=== PATIENT | male | born 1960 | race Caucasian/White ===

== ENCOUNTER 2021-08-15 19:55 | Emergency (ER) | payer BC ==
--- OUTSIDE RECORDS SUMMARY | 2021-08-15 19:58 | XMS REPORT | Continuity of Care Document ---
:[address] [facility] t Address [address] [place] [address] Care Team Providers Name Role Phone PCP, DOES NOT HAVE A Primary Care Physician Unavailable UNKNOWN Attending Clinician Unavailable Maryann INTELLIGENCE ANALYST Attending Clinician Lab, Fam Pob I Attending Clinician Unavailable Rei INTELLIGENCE ANALYST Attending Clinician Pob1, Care Clinic Attending Clinician Unavailable Sera LAWRENCE, A Attending Clinician Benoit GOODMAN, A Attending Clinician Unavailable MARYANN Attending Clinician Unavailable MARYANN Admitting Clinician Unavailable Payers Payer Name Policy Type Policy Number Effective Date Expiration Date S [facility] [id number] 2019 00:00:00 SRC AN [employer] [id number] 2015 00:00:00 COMPANY Problems Condition Condition Condition Status Onset Resolution Last Treating Co mments Source Name Details Category Date Date Treatment Clinician Date No known No known Disease Unive rs active active ity of problems problems [facility] Allergies, Adverse Reactions, Alerts Allergy Allergy Status Severity Reaction(s) Onset Inactive Treating Comm ents Source Name Type Date Date Clinician NO KNOWN Drug Active Univers ALLERGIE Class ity of S [facility] Social History Social Habit Start Date Stop Date Quantity Comments Source [facility] to SARS-[facility]-2 Yes [facility] [place] [facility]event[facility] Smoking Status Start Date Stop Date Source Never smoker [facility] Medications Ordered Filled Start Stop Current Ordering Indication Dosage Frequency Signature Comments Components Source Medication Medication Date Date Medication? Clinician (SIG) Name Name saxagliptin Yes Take by Un rita HCl/metform 6-13 mouth. ity of in HCl 17:05: [place] (KOMBIGLYZE 39 Medical XR ORAL) Branch empaglifloz 2020-0 Yes 25mg Take 25 mg Univers in 25 mg 6-13 by mouth. ity of Tab 17:05: [address] Branch pregabalin 2020-0 Yes Take by Uni vers 100 mg 6-13 mouth. ity of capsule 17:05: [address] Branch insulin 2020-0 Yes 44U inject 44 Unive rs degludec 6-13 Units ity of (TRESIBA 17:05: under the [facility] s FLEXTOUCH 39 skin. Medical U-100) 100 Branch unit/mL (3 mL) InPn insulin 2020-0 Yes inject Univers aspart 6-13 under the ity of U-100 17:05: skin. [place] (NOVOLOG 39 Medical FLEXPEN Branch U-100 INSULIN) 100 unit/mL (3 mL) injection saxagliptin 2020-0 Yes Take by Un rita HCl/metform 6-13 mouth. ity of in HCl 17:05: [place] (KOMBIGLYZE 39 Medical XR ORAL) Branch empaglifloz 2020-0 Yes 25mg Take 25 mg Univers in 25 mg 6-13 by mouth. ity of Tab 17:05: [address] Branch pregabalin 2020-0 Yes Take by Uni vers 100 mg 6-13 mouth. ity of capsule 17:05: [address] insulin 2020-0 Yes 44U inject 44 Unive rs degludec 6-13 Units ity of (TRESIBA 17:05: under the [facility] FLEXTOUCH 39 skin. Medical U-100) 100 Branch unit/mL (3 mL) InPn insulin 2020-0 Yes inject Univers aspart 6-13 under the ity of U-100 17:05: skin. [place] (NOVOLOG 39 Medical FLEXPEN Branch U-100 INSULIN) 100 unit/mL (3 mL) injection saxagliptin 2020-0 Yes Take by Un rita HCl/metform 6-13 mouth. ity of in HCl 17:05: [place] (KOMBIGLYZE 39 Medical XR ORAL) Branch empaglifloz 2020-0 Yes 25mg Take 25 mg Univers in 25 mg 6-13 by mouth. ity of Tab 17:05: [address] Branch pregabalin 2020-0 Yes Take by Uni vers 100 mg 6-13 mouth. ity of capsule 17:05: [place] 39 Medical Branch insulin 2020-0 Yes 44U inject 44 Unive rs degludec 6-13 Units ity of (TRESIB[place] 17:[place] FLEXT[place] 39 skin. Medical U-100) 100 Branch unit/mL (3 mL) InPn insulin 2020-0 Yes inject Univers aspart 6-13 under the ity of U-100 17:05: skin. [place] (NOVOLOG 39 Medical FLEXPEN Branch U-100 INSULIN) 100 unit/mL (3 mL) injection saxagliptin 2020-0 Yes Take by Un rita HCl/metform 6-13 mouth. ity of in HCl 17:05: [place] (KOMBIGLYZE 39 Medical XR ORAL) Branch empaglifloz 2020-0 Yes 25mg Take 25 mg Univers in 25 mg 6-13 by mouth. ity of Tab 17:05: [address] Branch pregabalin 2020-0 Yes Take by Uni vers 100 mg 6-13 mouth. ity of capsule 17:05: [address] Branch insulin 2020-0 Yes 44U inject 44 Unive rs degludec 6-13 Units ity of (TRESIBA 17:05: under the [facility] s FLEXTOUCH 39 skin. Medical U-100) 100 Branch unit/mL (3 mL) InPn insulin 2020-0 Yes inject Univers aspart 6-13 under the ity of U-100 17:05: skin. [place] (NOVOLOG Medical FLEXPEN Branch U-100 INSULIN) 100 unit/mL (3 mL) injection saxagliptin 2020-0 Yes Take by Un rita HCl/metform 6-13 mouth. ity of in HCl 17:05: [place] (KOMBIGLYZE 39 Medical XR ORAL) Branch empaglifloz 2020-0 Yes 25mg Take 25 mg Univers in 25 mg 6-13 by mouth. ity of Tab 17:05: [address] Branch pregabalin 2020-0 Yes Take by Uni vers 100 mg 6-13 mouth. ity of capsule 17:05: [address] insulin 2020-0 Yes 44U inject 44 Unive rs degludec 6-13 Units ity of (TRESIBA 17:05: [place] FLEXT[place] 39 skin. Medical U-100) 100 Branch unit/mL (3 mL) InPn insulin 2020-0 Yes inject Univers aspart 6-13 under the ity of U-100 17:05: skin. [place] (NOVOLOG 39 Medical FLEXPEN Branch U-100 INSULIN) 100 unit/mL (3 mL) injection saxagliptin 2020-0 Yes Take by Un rita HCl/metform 6-13 mouth. ity of in HCl 17:05: [place] (KOMBIGLYZE 39 Medical XR ORAL) Branch empaglifloz 2020-0 Yes 25mg Take 25 mg Univers in 25 mg 6-13 by mouth. ity of Tab 17:05: [place] [address] Medical Branch pregabalin 2020-0 Yes Take by Uni vers 100 mg 6-13 mouth. ity of capsule 17:05: [place] [address] Medical Branch insulin 2020-0 Yes 44U inject 44 Unive rs degludec 6-13 Units ity of (TRESIBA 17:05: [place] FLEXT[place] 39 skin. Medical U-100) 100 Branch unit/mL (3 mL) InPn insulin 2020-0 Yes inject Univers aspart 6-13 under the ity of U-100 17:05: skin. [place] (NOVOLOG 39 Medical FLEXPEN Branch U-100 INSULIN) 100 unit/mL (3 mL) injection methylPREDN 2020-0 Yes [id number] Take by Univers ISolone 4 6-13 mouth ity of mg tablets 00:00: [place] 00 CTIONS. Medical follow Branch package directions benzonatate 2020-0 Yes [id number] 100mg Take 1 Univers (TESSALON 6-13 capsule by ity of PERLES) 100 00:00: mouth 3 F[place] as mg capsule 00 (three) Medica l times Branch daily as needed for Cough. albuterol 2020-0 Yes [id number] 2{puff} Inhale 2 Univers 90 6-13 Puffs ity of mcg/actuati 00:00: every 6 Fadi as on inhaler 00 (six) Medical hours as Branch needed for Wheezing or Shortness of Breath. methylPREDN 2020-0 Yes [id number] Take by Univers ISolone 4 6-13 mouth ity of mg tablets 00:00: [place]STRU [place] 00 CTIONS. Medical follow Branch package directions benzonatate 2020-0 Yes [id number] 100mg Take 1 Univers (TESSALON 6-13 capsule by ity of PERLES) 100 00:00: mouth 3 Fadi as mg capsule 00 (three) Medica l times Branch daily as needed for Cough. albuterol 2020-0 Yes [id number] 2{puff} Inhale 2 Univers 90 6-13 Puffs ity of mcg/actuati 00:00: every 6 Fadi as on inhaler 00 (six) Medical hours as Branch needed for Wheezing or Shortness of Breath. methylPREDN 2020-0 Yes [id number] Take by Univers ISolone 4 6-13 mouth ity of mg tablets 00:00: [place]STRU [place] 00 CTIONS. Medical follow Branch package directions benzonatate 2020-0 Yes [id number] 100mg Take 1 Univers (TESSALON 6-13 capsule by ity of PERLES) 100 00:00: mouth 3 Fadi as mg capsule 00 (three) Medica l times Branch daily as needed for Cough. albuterol 2020-0 Yes [id number] 2{puff} Inhale 2 Univers 90 6-13 Puffs ity of mcg/actuati 00:00: every 6 Fadi as on inhaler 00 (six) Medical hours as Branch needed for Wheezing or Shortness of Breath. methylPREDN 2020-0 Yes [id number] Take by Univers ISolone 4 6-13 mouth ity of mg tablets 00:00: [place] 00 CTIONS. Medical follow Branch package directions benzonatate 2020-0 Yes [id number] 100mg Take 1 Univers (TESSALON 6-13 capsule by ity of PERLES) 100 00:00: mouth 3 Fadi as mg capsule 00 (three) Medica l times Branch daily as needed for Cough. albuterol 2020-0 Yes [id number] 2{puff} Inhale 2 Univers 90 6-13 Puffs ity of mcg/actuati 00:00: every 6 Fadi as on inhaler 00 (six) Medical hours as Branch needed for Wheezing or Shortness of Breath. methylPREDN 2020-0 Yes [id number] Take by Univers ISolone 4 6-13 mouth ity of mg tablets 00:00: [place]STRU [place] 00 CTIONS. Medical follow Branch package directions benzonatate 2020-0 Yes [id number] 100mg Take 1 Univers (TESSALON 6-13 capsule by ity of PERLES) 100 00:00: mouth 3 Fadi as mg capsule 00 (three) Medica l times Branch daily as needed for Cough. albuterol 2020-0 Yes [id number] 2{puff} Inhale 2 Univers 90 6-13 Puffs ity of mcg/actuati 00:00: every 6 Fadi as on inhaler 00 (six) Medical hours as Branch needed for Wheezing or Shortness of Breath. methylPREDN 2019-0 Yes [id number] Take by Univers ISolone 4 6-13 mouth ity of mg tablets 00:00: SEE-INSTRU [place] 00 CTIONS. Medical follow Branch package directions benzonatate Yes [id number] 100mg Take 1 Univers (TESSALON 6-13 capsule by ity of PERLES) 100 00:00: mouth 3 Fadi as mg capsule 00 (three) Medica l times Branch daily as needed for Cough. albuterol Yes [id number] 2{puff} Inhale 2 Univers 90 6-13 Puffs ity of mcg/actuati 00:00: every 6 Fadi as on inhaler 00 (six) Medical hours as Branch needed for Wheezing or Shortness of Breath. Vital Signs Vital Name Observation Time Observation Value Comments Source Systolic blood 2019-10-04 17:02:00 162 mm[Hg] [facility] Diastolic blood 2019-10-04 17:02:00 78 mm[Hg] [facility] [place] Heart rate 2019-10-04 16:58:00 77 /min [facility] Body temperature 2019-10-04 16:58:00 36.56 [facility] Respiratory rate 2019-10-04 16:58:00 17 /min [facility] Body height 2019-10-04 16:58:00 165.1 cm [facility] Body weight 2019-10-04 16:58:00 75.297 kg [facility] BMI 2019-10-04 16:58:00 27.62 kg/m2 [facility] Oxygen saturation in 2019-10-04 16:58:00 98 /min [facility] Arterial blood by [facility] Pulse oximetry Branch Procedures Procedure Date / Time Performed Performing Clinician Sourc e XR CHEST 2 VW COVID 2019-10-04 17:47:18 Vida Wolf [facility] Encounters Start End Encounter Admission Attending Care Care Encounter Source Date/Time Date/Time Type Type Clinicians Facility Department ID 2019-11-04 2019-11-04 Outpatient R [facility] [id number] Univers 07:00:00 07:00:00 [id number] ity of [facility] 2019-11-04 2019-11-04 Outpatient R UNKNOWN, [facility] [id number] Univers 07:00:00 07:00:00 ATTENDING ity of [facility] 2019-10-29 2019-10-29 Jonathanzhane Wolf [facility] [id number] Univers 00:00:00 00:00:00 [facility] [id number] it y of [place] [id number] Fadi as Professio [phone] Oh dical nal [address] [place] [address] [facility] 2019-10-22 2019-10-22 Laboratory Lab, Adc Fam Pob I [facility] [id number] Univers 11:13:43 11:33:43 Only Gunjan [facility] [id number] ity of [place] [id number] Fadi as Professio [phone] Oh dical nal [address] [place] [address] One 2019-10-22 2019-10-22 Outpatient R [facility] [id number] Univers 11:20:00 11:20:00 [id number] ity of [facility] 2019-10-22 2019-10-22 Outpatient R [facility] [id number] Univers 11:20:00 11:20:00 ity of [facility] 2019-10-03 2019-10-05 Urgent Pob1, Acute Care Clinic [facility] [id number]. [id number] Univers 15:42:51 12:10:46 Care Yoli [facility] [id number] ity of [place] [id number] Fadi as Professio [phone] Oh dicpa nal [address] [place] [address] Office Building [facility] 2019-10-05 2019-10-05 Telephone BenoitDESI [id number] Univers 00:00:00 00:00:00 Clare FIGUEROA [id number] i ty of [facility] [id number] Fadi as [phone] [address] 2019-10-04 2019-10-04 Outpatient R MARYANN [facility] [id number] Univers 12:29:20 23:59:00 VIDA sorensen of [facility] 2019-10-04 2019-10-04 Hospital Maryann [facility] [id number] Univers 12:29:00 23:59:00 Encounter Vida Zapata [id number] ity jose Guzman [id number] [facility] [id number] [facility] 807 Branch Results Test Description Test Time Test Comments Results Result Sourc e Comments XR CHEST 2 VW 2019-09-22 Patchy pulmonary Univ ersity of COVID 3 opacities worse on [facility] 22:37:53 the right are Branch suspicious for infection.COVID 19 should be considered. Follow-up to resolution is recommended. [id number] End of report CHEST TWO VIEW ORDERING PHYSICIAN: VIDA WOLF CLINICAL HISTORY:cough and sob Camilo Redd is a 59 year old male:cough/sob for 2 weeks.; TECHNIQUE: PA and lateral radiographs of the chest. COMPARISON: None available. FINDINGS: There are patchy opacities in the lungs most pronounced on the left. Thereis relative sparing of the left upper lobe. There is no large pleuraleffusion. There is no large pneumothorax. Heart size upper limit normal.There is no acute bony abnormality. [facility], Radiant Results Inft User - 10/04/2019 5:39 PM CDTCHEST TWO VIEWORDERING PHYSICIAN: VIDA WOLFCLINICAL HISTORY:cough and sob Camilo Redd is a 59 year old male:cough/sob for 2 weeks.;TECHNIQUE: PA and lateral radiographs of the chest.COMPARISON: None available.FINDINGS:Th ere are patchy opacities in the lungs most pronounced on the left. Thereis relative sparing of the left upper lobe. There is no large pleuraleffusion. There is no large pneumothorax. Heart size upper limit normal.There is no acute bony abnormality. IMPRESSIONPatchy pulmonary opacities worse on the right are suspicious for infection.COVID 19 should be considered. Follow-up to resolution is recommended.[id number] of report
--- NOTE | 2021-08-15 20:29 | EDPHYS ---
Physician Documentation [facility] Name: Camilo Redd Age: 61 yrs Sex: Male : 1960 Arrival Date: 08/15/2021 Time: 19:59 Bed 23 Private MD: ED Physician Deion Steven HPI: 08/15 20:17 This 61 yrs old Male presents to ER via Ambulatory with complaints of Swallowed Foreign jr8 Body. 20:38 Patient stated that he swallowed a piece of tooth from denture that he tried to glue jr8 back on. Denies choking on the denture piece. Currently without any symptoms . 20:48 The patient or guardian reports the patient has a suspected foreign body, that has been jr8 ingested. Onset: The symptoms/episode began/occurred acutely, today. Current symptoms: none. The patient has not experienced similar symptoms in the past. The patient has not recently seen a physician. Historical: - Allergies: 20:12 No Known Allergies; ld1 - Home Meds: 20:12 None [Active]; ld1 - PMHx: 20:12 Diabetes mellitus; ld1 - Immunization history:: Adult Immunizations up to date, Client reports receiving the 2nd dose of the Covid vaccine. - Social history:: Smoking status: Patient denies any tobacco usage or history of. Patient uses alcohol, occasionally. ROS: 20:48 Eyes: Negative for injury, pain, redness, and discharge, ENT: Negative for injury, jr8 pain, and discharge, Neck: Negative for injury, pain, and swelling, Cardiovascular: Negative for chest pain, palpitations, and edema, Respiratory: Negative for shortness of breath, cough, wheezing, and pleuritic chest pain, Abdomen/GI: Negative for abdominal pain, nausea, vomiting, diarrhea, and constipation, Back: Negative for injury and pain, MS/Extremity: Negative for injury and deformity, Skin: Negative for injury, rash, and discoloration, Neuro: Negative for headache, weakness, numbness, tingling, and seizure. Exam: 20:48 Constitutional: This is a well developed, well nourished patient who is awake, alert, jr8 and in no acute distress. Cardiovascular: Regular rate and rhythm with a normal S1 and S2. No gallops, murmurs, or rubs. Normal PMI, no JVD. No pulse deficits. Respiratory: Lungs have equal breath sounds bilaterally, clear to auscultation and percussion. No rales, rhonchi or wheezes noted. No increased work of breathing, no retractions or nasal flaring. Abdomen/GI: Soft, non-tender, with normal bowel sounds. No distension or tympany. No guarding or rebound. No evidence of tenderness throughout. Skin: Warm, dry with normal turgor. Normal color with no rashes, no lesions, and no evidence of cellulitis. MS/ Extremity: Pulses equal, no cyanosis. Neurovascular intact. Full, normal range of motion. Neuro: Awake and alert, GCS 15, oriented to person, place, time, and situation. Cranial nerves II-XII grossly intact. Motor strength 5/5 in all extremities. Sensory grossly intact. Vital Signs: 20:04 BP 173 / 85; Pulse 80; Resp 18; Temp 98.1(TE); Pulse Ox 100% on R/A; Weight 74.84 kg; ld1 Height 5 ft. 5 in. (165.10 cm); Pain 0/10; 20:04 Body Mass Index 27.46 (74.84 kg, 165.10 cm) ld1 MDM: 20:01 Patient medically screened. jr8 20:24 Data reviewed: vital signs, nurses notes, and as a result, I will discharge patient. jr8 Data interpreted: Pulse oximetry: on room air is 100 %. Counseling: I had a detailed discussion with the patient and/or guardian regarding: the historical points, exam findings, and any diagnostic results supporting the discharge/admit diagnosis, the need for outpatient follow up, a family practitioner, to return to the emergency department if symptoms worsen or persist or if there are any questions or concerns that arise at home. ED course: Patient has swallowed fake denture tooth. Wanted to make sure he did not need to do anything specifically. Stated that it had a 45 degree angle on one side due to previous malfunction of the denture that he glued on. Explained to him that there is nothing at this time to be done. Recommended just watching for s/s of complication from foreign body ingestion such as abdominal pain, bleeding, n/v. If any were to occur to come back for further evaluation. Otherwise nothing else to be done at this time. Patient good with this and will follow up or come back . Administered Medications: No medications were administered Disposition Summary: 08/15/21 20:28 Discharge Ordered Location: Home jr8 Problem: new jr8 Symptoms: have improved jr8 Condition: Stable jr8 Diagnosis - Foreign body in stomach jr8 Followup: jr8 - With: Private Physician - When: 2 - 3 days - Reason: Recheck today's complaints, Continuance of care, Re-evaluation by your physician Discharge Instructions: - Discharge Summary Sheet jr8 - Swallowed Foreign Body, Adult jr8 Forms: - Medication Reconciliation Form jr8 - Thank You Letter jr8 - Antibiotic Education jr8 - Prescription Opioid Use jr8 Addendum: 08/18/2021 07:13 Co-signature as Attending Physician, Deion Steven MD I agree with the assessment and c ramirez plan of care. Signatures: Deion Steven MD MD cha Roszak, Josh, PA PA jr8 Camelia Tomas, RN RN ld1 Corrections: (The following items were deleted from the chart) 08/15 20:13 20:12 PMHx: None; ld1 ld1 20:49 20:38 Patient stated that he swallowed a piece of tooth from denture that he tried to jr8 glue back on. Denies choking on the denture piece . jr8
--- NOTE | 2021-08-15 20:29 | ER ---
Nurse's Notes [facility] Name: Camilo Redd Age: 61 yrs Sex: Male : 1960 Arrival Date: 08/15/2021 Time: 19:59 Bed 23 Private MD: Diagnosis: Foreign body in stomach Presentation: 08/15 20:04 Chief complaint: Patient states: About 30 minutes ago I swallowed a partial denture. Pt ld1 denies pain. Coronavirus screen: At this time, the client does not indicate any symptoms associated with coronavirus-19. Ebola Screen: No symptoms or risks identified at this time. Initial Sepsis Screen: Does the patient meet any 2 criteria? No. Patient's initial sepsis screen is negative. Does the patient have a suspected source of infection? No. Patient's initial sepsis screen is negative. Risk Assessment: Do you want to hurt yourself or someone else? Patient reports no desire to harm self or others. Onset of symptoms was August 15, 2021. 20:04 Method Of Arrival: Ambulatory ld1 20:04 Acuity: CARLOS MANUEL 4 ld1 Triage Assessment: 20:12 General: Appears in no apparent distress. comfortable, Behavior is calm, cooperative, ld1 appropriate for age. Pain: Denies pain. EENT: No signs and/or symptoms were reported regarding the EENT system. Neuro: Level of Consciousness is awake, alert, obeys commands, Oriented to person, place, time, situation. Cardiovascular: Capillary refill < 3 seconds Patient's skin is warm and dry. Respiratory: Airway is patent Respiratory effort is even, unlabored, Respiratory pattern is regular, symmetrical. GI: Abdomen is flat, non-distended. : No signs and/or symptoms were reported regarding the genitourinary system. Derm: No signs and/or symptoms reported regarding the dermatologic system. Musculoskeletal: No signs and/or symptoms reported regarding the musculoskeletal system. Historical: - Allergies: 20:12 No Known Allergies; ld1 - Home Meds: 20:12 None [Active]; ld1 - PMHx: 20:12 Diabetes mellitus; ld1 - Immunization history:: Adult Immunizations up to date, Client reports receiving the 2nd dose of the Covid vaccine. - Social history:: Smoking status: Patient denies any tobacco usage or history of. Patient uses alcohol, occasionally. Screenin:13 Abuse screen: Denies threats or abuse. Denies injuries from another. Nutritional ld1 screening: No deficits noted. Tuberculosis screening: No symptoms or risk factors identified. Fall Risk None identified. Assessment: 20:13 Reassessment: see triage assessment. ld1 Vital Signs: 20:04 BP 173 / 85; Pulse 80; Resp 18; Temp 98.1(TE); Pulse Ox 100% on R/A; Weight 74.84 kg; ld1 Height 5 ft. 5 in. (165.10 cm); Pain 0/10; 20:04 Body Mass Index 27.46 (74.84 kg, 165.10 cm) ld1 ED Course: 19:59 Patient arrived in ED. ag3 20:01 Kemal Gusman PA is PHCP. jr8 20:01 Deion Steven MD is Attending Physician. jr8 20:04 Camelia Tomas, MAXINE is Primary Nurse. ld1 20:12 Triage completed. ld1 20:12 Arm band placed on right wrist. ld1 20:13 No provider procedures requiring assistance completed. Patient did not have IV access ld1 during this emergency room visit. Administered Medications: No medications were administered Outcome: 20:28 Discharge ordered by . jr8 20:36 Discharged to home ambulatory. ld1 20:36 Condition: stable 20:36 Discharge instructions given to patient, Instructed on discharge instructions, follow up and referral plans. Demonstrated understanding of instructions, follow-up care. 20:36 Patient left the ED. ld1 Signatures: Kemal Gusman PA PA 8 Mae Sloan 3 Camelia Tomas, RN RN ld1 Corrections: (The following items were deleted from the chart) 20:13 20:12 PMHx: None; ld1 ld1
[2021-08-16 00:19] VITALS: BP 173/85; TEMP 98.1; O2SAT 100
== END 2021-08-15 20:36 | disposition home or self-care (01) ==
LOC: ER 19:55
DX: T18.2XXA Foreign body in stomach, initial encounter (principal); X58.XXXA Exposure to other specified factors, initial encounter; Y93.89 Activity, other specified; Y92.9 Unspecified place or not applicable
CPT/HCPCS: 99281

== ENCOUNTER 2023-02-24 17:31 | Emergency (ER) | payer BC ==
--- OUTSIDE RECORDS SUMMARY | 2023-02-24 17:34 | XMS REPORT | Continuity of Care Document ---
:1960 Author Organization [facility] t Address [address] [facility] [address] [place] [address] Care Team Providers Name Role Phone PCP, PATIENT DOES NOT HAVE A Primary Care Physician Unavaila ble UNKNOWN, ATTENDING Attending Clinician Unavailable Vida Avalos Attending Clinician Lab, Adc Fam Pob I Attending Clinician Unavailable Gunjan Ayers Attending Clinician Pob1, Acute Care Clinic Attending Clinician Unavailable Yoli Hickey Attending Clinician Benoit RN, Clare Aguilar Attending Clinician Unavailable VIDA WOLF Attending Clinician Unavailable VIDA WOLF Admitting Clinician Unavailable Payers Payer Name Policy Type Policy Number Effective Date Expiration Date [facility] [id number] 2019 00:00:00 SRC AN [employer] [id number] 2015 00:00:00 COMPANY Problems Condition Condition Condition Status Onset Resolution Last Treating Co mments Source Name Details Category Date Date Treatment Clinician Date No known No known Disease Unive rs active active ity of problems problems [facility] Allergies, Adverse Reactions, Alerts Allergy Allergy Status Severity Reaction(s) Onset Inactive Treating Comm ents Source Name Type Date Date Clinician NO KNOWN Drug Active Univers ALLERGIE Class ity of S [facility] Family History Family Member Diagnosis Comments Start Date Stop Date Source Natural father Coronary artery [facility] disease Natural father Diabetes [facility] Social History Social Habit Start Date Stop Date Quantity Comments Source Exposure to Yes University of SARS-CoV-2 (event) [facility] Sexual orientation [facility] Alcohol intake 2017-02-12 2017-02-12 Current drinker [facility] 00:00:00 00:00:00 of alcohol Hospital (finding) History of Social 2017-01-23 2017-01-[address] function 00:00:00 00:00:00 Hospital Alcohol Comment 2017-01-23 2017-01-23 2-3drinks/day [facility] 00:00:00 00:00:00 [facility] Sex Ass[birth year] At [birth year] [facility] 00:[facility] Smoking Status Start Date Stop Date Source Never smoker [facility] Branch Medications Ordered Filled Start Stop Current Ordering Indication Dosage Frequency Signature Comments Components Source Medication Medication Date Date Medication? Clinician (SIG) Name Name saxagliptin 2020-0 Yes Take by Uni vers HCl/metform 6-13 mouth. ity of in HCl 17:05: [place] (KOMBIGLYZE 39 Medical XR ORAL) Branch empaglifloz 2020-0 Yes 25mg Take 25 mg Univers in 25 mg 6-13 by mouth. ity of Tab 17:05: [address] Branch pregabalin 2020-0 Yes Take by Univ ers 100 mg 6-13 mouth. ity of capsule 17:05: [address] Branch insulin 2020-0 Yes 44U inject 44 Unive rs degludec 6-13 Units ity of (TR[place]IB[place] 17:[place]: [place] FLEXTOUCH 39 skin. Medical U-100) 100 Branch unit/mL (3 mL) InPn insulin 2020-0 Yes inject Univers aspart 6-13 under the ity of U-100 17:05: skin. [place] (NOVOLOG 39 Medical FLEXPEN Branch U-100 INSULIN) 100 unit/mL (3 mL) injection saxagliptin 2020-0 Yes Take by Uni vers HCl/metform 6-13 mouth. ity of in HCl 17:05: [place] (KOMBIGLYZE 39 Medical XR ORAL) Branch empaglifloz 2020-0 Yes 25mg Take 25 mg Univers in 25 mg 6-13 by mouth. ity of Tab 17:05: [address] Branch pregabalin 2020-0 Yes Take by Univ ers 100 mg 6-13 mouth. ity of capsule 17:05: [address] Branch insulin 2020-0 Yes 44U inject 44 Unive rs degludec 6-13 Units ity of (TRESIBA 17:05: [facility] FLE[facility] skin. Medical U-100) 100 Branch unit/mL (3 mL) InPn insulin 2020-0 Yes inject Univers aspart 6-13 under the ity of U-100 17:05: skin. [place] [facility] FLEXPEN Branch U-100 INSULIN) 100 unit/mL (3 mL) injection saxagliptin 2020-0 Yes Take by Uni vers HCl/metform 6-13 mouth. ity of in HCl 17:05: [place] (KOMBIGLYZE 39 Medical XR ORAL) Branch empaglifloz 2020-0 Yes 25mg Take 25 mg Univers in 25 mg 6-13 by mouth. ity of Tab 17:05: [address] Branch pregabalin 2020-0 Yes Take by Uni vers 100 mg 6-13 mouth. ity of capsule 17:05: [address] Branch insulin 2020-0 Yes 44U inject 44 Unive rs degludec 6-13 Units ity of (TRESIBA 17:05: under the [facility] FLEXTOUCH 39 skin. Medical U-100) 100 Branch unit/mL (3 mL) InPn insulin 2020-0 Yes inject Univers aspart 6-13 under the ity of U-100 17:05: skin. [place] ([facility] FLEXPEN Branch U-100 INSULIN) 100 unit/mL (3 mL) injection saxagliptin 2020-0 Yes Take by Uni vers HCl/metform 6-13 mouth. ity of in HCl 17:05: [place] (KOMBIGLYZE 39 Medical XR ORAL) Branch empaglifloz 2020-0 Yes 25mg Take 25 mg Univers in 25 mg 6-13 by mouth. ity of Tab 17:05: [address] Branch pregabalin 2020-0 Yes Take by Univ ers 100 mg 6-13 mouth. ity of capsule 17:05: [address] insulin 2020-0 Yes 44U inject 44 Unive rs degludec 6-13 Units ity of (TRESIBA 17:05: [facility] FLE[facility]CH 39 skin. Medical U-100) 100 Branch unit/mL (3 mL) InPn insulin 2020-0 Yes inject Univers aspart 6-13 under the ity of U-100 17:05: skin. [place] (NOVOLOG 39 Medical FLEXPEN Branch U-100 INSULIN) 100 unit/mL (3 mL) injection saxagliptin 2020-0 Yes Take by Uni vers HCl/metform 6-13 mouth. ity of in HCl 17:05: [place] (KOMBIGLYZE 39 Medical XR ORAL) Branch empaglifloz 2020-0 Yes 25mg Take 25 mg Univers in 25 mg 6-13 by mouth. ity of Tab 17:05: [address] Branch pregabalin 2020-0 Yes Take by Univ ers 100 mg 6-13 mouth. ity of capsule 17:05: [place] [address] Medical Branch insulin 2020-0 Yes 44U inject 44 Unive rs degludec 6-13 Units ity of (TRESIBA 17:05: [facility] FLE[facility]CH 39 skin. Medical U-100) 100 Branch unit/mL (3 mL) InPn insulin 2020-0 Yes inject Univers aspart 6-13 under the ity of U-100 17:05: skin. [place] ([facility] Medical FLEXPEN Branch U-100 INSULIN) 100 unit/mL (3 mL) injection saxagliptin 2020-0 Yes Take by Uni vers HCl/metform 6-13 mouth. ity of in HCl 17:05: [place] (KOMBIGLYZE 39 Medical XR ORAL) Branch empaglifloz 2020-0 Yes 25mg Take 25 mg Univers in 25 mg 6-13 by mouth. ity of Tab 17:05: [address] Branch pregabalin 2020-0 Yes Take by Univ ers 100 mg 6-13 mouth. ity of capsule 17:05: [address] Branch insulin 2020-0 Yes 44U inject 44 Unive rs degludec 6-13 Units ity of (TRESIBA 17:05: under the [facility] s FLEXTOUCH 39 skin. Medical U-100) 100 Branch unit/mL (3 mL) InPn insulin 2020-0 Yes inject Univers aspart 6-13 under the ity of U-100 17:05: skin. [place] (NOVOLOG 39 Medical FLEXPEN Branch U-100 INSULIN) 100 unit/mL (3 mL) injection albuterol 2020-0 Yes [id number] 2{puff} Inhale 2 Univers 90 6-13 Puffs ity of mcg/actuati 00:00: every 6 Fadi as on inhaler 00 (six) Medical hours as Branch needed for Wheezing or Shortness of Breath. methylPREDN 2020-0 Yes [id number] Take by Univers ISolone 4 6-13 mouth ity of mg tablets 00:00: [place]STRU [place] 00 CTIONS. Medical follow Branch package directions benzonatate 2020-0 Yes [id number] 100mg Take 1 Univers (TESSALON 6-13 capsule by ity of PERLES) 100 00:00: mouth 3 Fadi as mg capsule 00 (three) Medica l times Branch daily as needed for Cough. albuterol 2020-0 Yes [id number] 2{puff} Inhale 2 Univers 90 6-13 Puffs ity of mcg/actuati 00:00: every 6 Fadi as on inhaler 00 (six) Medical hours as Branch needed for Wheezing or Shortness of Breath. methylPREDN 2020-0 Yes [id number] Take by Univers ISolone 4 6-13 mouth ity of mg tablets 00:00: [place]-INSTRU [place] 00 CTIONS. Medical follow Branch package directions benzonatate 2020-0 Yes [id number] 100mg Take 1 Univers (TESSALON 6-13 capsule by ity of PERLES) 100 00:00: mouth 3 Fadi as mg capsule 00 (three) Medica l times Branch daily as needed for Cough. albuterol 2020-0 Yes [id number] 2{puff} Inhale 2 Univers 90 6-13 Puffs ity of mcg/actuati 00:00: every 6 Fadi as on inhaler 00 (six) Medical hours as Branch needed for Wheezing or Shortness of Breath. methylPREDN 2020-0 Yes [id number] Take by Univers ISolone 4 6-13 mouth ity of mg tablets 00:00: [place]STRU [place] 00 CTIONS. Medical follow Branch package directions benzonatate 2020-0 Yes [id number] 100mg Take 1 Univers (TESSALON 6-13 capsule by ity of PERLES) 100 00:00: mouth 3 Fadi as mg capsule 00 (three) Medica l times Branch daily as needed for Cough. albuterol 2020-0 Yes [id number] 2{puff} Inhale 2 Univers 90 6-13 Puffs ity of mcg/actuati 00:00: every 6 Fadi as on inhaler 00 (six) Medical hours as Branch needed for Wheezing or Shortness of Breath. methylPREDN 2020-0 Yes [id number] Take by Univers ISolone 4 6-13 mouth ity of mg tablets 00:00: [place]-INSTRU [place] 00 CTIONS. Medical follow Branch package directions benzonatate 2020-0 Yes [id number] 100mg Take 1 Univers (TESSALON 6-13 capsule by ity of [employer]) 100 00:00: mouth 3 Fadi as mg capsule 00 (three) Medica l times Branch daily as needed for Cough. albuterol 2020-0 Yes [id number] 2{puff} Inhale 2 Univers 90 6-13 Puffs ity of mcg/actuati 00:00: every 6 Fadi as on inhaler 00 (six) Medical hours as Branch needed for Wheezing or Shortness of Breath. methylPREDN 2020-0 Yes [id number] Take by Univers ISolone 4 6-13 mouth ity of mg tablets 00:00: [place]-INSTRU [place] CTIONS. Medical follow Branch package directions benzonatate 2020-0 Yes [id number] 100mg Take 1 Univers (TESSALON 6-13 capsule by itfaye of ASHISH) 100 00:00: mouth 3 Fadi as mg capsule 00 (three) Medica l times Branch daily as needed for Cough. albuterol 2020-0 Yes [id number] 2{puff} Inhale 2 Univers 90 6-13 Puffs ity of mcg/actuati 00:00: every 6 Fadi as on inhaler 00 (six) Medical hours as Branch needed for Wheezing or Shortness of Breath. methylPREDN 2020-0 Yes [id number] Take by Univers ISolone 4 6-13 mouth ity of mg tablets 00:00: SEE-INSTRU [place] 00 CTIONS. Medical follow Branch package directions benzonatate 2020-0 Yes [id number] 100mg Take 1 Univers (TESSALON 6-13 capsule by ity of ASHISH) 100 00:00: mouth 3 Fadi as mg capsule 00 (three) Medica l times Branch daily as needed for Cough. INSULIN 2016-04 Yes 44U QD Inject 44 Metho di DEGLUDEC 0-[address] (TRESIBA 03:22: under the [facility] FLEXTOUCH 11 skin l U-100 SUBQ) daily. INSULIN 2016-04 Yes [id number] Inject Me thodi ASPART 0-[id number] (NOVOLOG 03:22: 3D skin 3 Hospita SUBQ) 11 (three) l times a day. Sliding scale PREGABALIN 2016-04 Yes Take by Meth andrea (LYRICA 0-[address] ORAL) 03:22: Hospita 11 l gabapentin 2016-04 Yes 600mg Q.5D Take 600 Me thodi (NEURONTIN) 0-[address] 600 mg 03:22: mouth 2 Hospita tablet 11 (two) l times a day. 1-2 tabs CALCIUM 2016-04 Yes Take by Methodi ORAL 0-[address] 03:22: Hospita 11 l empaglifloz 2016-04 Yes 25mg QD Take 25 mg Methodi in 0-[address] (JARDIANCE) 03:22: daily. Hosp [facility]jesh 25 mg 11 l tablet ramipril 2016-04 Yes 5mg QD Take 5 mg Meth andrea (ALTACE) 5 0-[address] MG capsule 03:22: every Hospit a 11 morning. l SAXAGLIPTIN 2016-04 Yes Q.5D Take by Met hodi HCL/METFORM 0-[address] IN HCL 03:22: (two) Hospita (KOMBIGLYZE 11 times a l XR ORAL) day. Vital Signs Vital Name Observation Time Observation Value Comments Source Systolic blood 2019-10-04 17:02:00 162 mm[Hg] [facility] Diastolic blood 2019-10-04 17:02:00 78 mm[Hg] [facility] Body temperature 2019-10-04 16:58:00 36.56 [facility]ate [facility] Respiratory rate 2019-10-04 16:58:00 17 /min [facility] Body height 2019-10-04 16:58:00 165.1 cm [facility] Body weight 2019-10-04 16:58:00 75.297 kg [facility] BMI 2019-10-04 16:58:00 27.62 kg/m2 [facility] Oxygen saturation in 2019-10-04 16:58:00 98 /min [facility] Arterial blood by [facility] Pulse oximetry Branch Heart rate 2019-10-04 16:58:00 77 /min [facility] Procedures Procedure Date / Time Performed Performing Clinician Sourc e XR CHEST 2 VW COVID 2019-10-04 17:47:18 Vida Wolf [facility] Plan of Care Planned Activity Planned Date Details Comments Source Future Scheduled 2023-02-14 [facility] Test 14:31:17 malignant neoplasm of colon (procedure) [code = 153981246] Future Scheduled 2023-02-14 [facility] Test 14:31:17 malignant neoplasm of colon (procedure) [code = 321104713] Future Scheduled 2023-02-14 [facility] Test 14:31:17 malignant neoplasm of colon (procedure) [code = 994271574] Future Scheduled 2023-02-14 COVID-[address] [facility] Test 14:31:17 (#1) [code = COVID-19 VACCINE (#1)] Future Scheduled 2023-02-14 [facility] Test 14:31:17 malignant neoplasm of colon (procedure) [code = 277222868] Future Scheduled 2023-02-14 [facility] Test 14:31:17 malignant neoplasm of colon (procedure) [code = 689392953] Future Scheduled 2023-02-14 SHINGLES VACCINES [facility] Test 14:31:17 (1 of 2) [code = SHINGLES VACCINES (1 of 2)] Future Scheduled 2023-02-14 INFLUENZA VACCINE [facility] Test 14:31:17 (#1) [code = INFLUENZA VACCINE (#1)] Encounters Start End Encounter Admission Attending Care Care Encounter Source Date/Time Date/Time Type Type Clinicians Facility Department ID 2019-11-04 2019-11-04 Outpatient R UNKNOWN, [facility] [id number] Univers 07:00:00 07:00:00 ATTENDING franchesca [facility] 2019-10-29 2019-10-29 Refill Presley [facility] [id number] Univers 00:00:00 00:00:00 [facility] [id number] it y [facility] [id number] Fadi as [place] [phone] [address] 2019-10-22 2019-10-22 Laboratory Lab, Adc Fam Pob I [facility] [id number] Univers 11:13:43 11:33:43 Only Gunjan Minaya [facility] [id number] ity of [place] [id number] Fadi as [facility]io [phone] [facility] [address] 2019-10-22 2019-10-22 Outpatient R [facility] [id number] Univers 11:20:00 11:20:00 ity of [facility] 2019-10-03 2019-10-05 Urgent Pob1, Acute Care Clinic [facility] [id number]. [id number] Univers 15:42:51 12:10:46 Care Yoli [facility] [id number] ity of [place] [id number] Fadi as Professio [phone] [facility] [address] 2019-10-05 2019-10-05 Telephone DESI Laboy [id number] Univers 00:00:00 00:00:00 Clare FIGUEROA [id number] i ty of [facility] [id number] Fadi as [phone] [facility] [address] 2019-10-04 2019-10-04 Outpatient R [facility] [id number] Univers 12:29:20 23:59:00 [facility] 2019-10-04 2019-10-04 Pending sale to [facility] [id number] Univers 12:29:00 23:59:00 Encounter Vida [place] [id number] ity of [place] [id number] [place] [facility] [phone] [facility] 807 Branch Results Test Description Test Time Test Comments Results Result Sour e Comments XR CHEST 2 VW 2019-09-22 Patchy pulmonary Univ ersity of COVID 3 opacities worse on [facility] 22:37:53 the right are Branch suspicious for infection.COVID 19 should be considered. Follow-up to resolution is recommended. [id number] End of report CHEST TWO VIEW ORDERING [...] limit normal.There is no acute bony abnormality. [facility], Radiant Results Inft User - 10/04/2019 5:39 PM CDTCHEST TWO VIEWORDERING PHYSICIAN: VIDA RAYINICAL HISTORY:cough and sob Camilo Redd is a [...] be considered. Follow-up to resolution is recommended.[id number] of report
[2023-02-24 18:42] LABS: Protime INR 1.01
[2023-02-24 18:43] LABS: Specific Gravity 1.022 (1.005-1.030); Urine Bacteria <20 /HPF (<20); Urine Bilirubin NEGATIVE (Negative); Urine Blood Negative (Negative); Urine Clarity Clear (Clear); Urine Color Light-Yellow (Yellow); Urine Glucose 4+ (Over) (Negative); Urine Protein NEGATIVE (Negative); Urine RBC <5 /HPF (None Seen); Urine Urobilinogen Normal (Normal)
[2023-02-24 18:46] LABS: Absolute Lymphocytes (CBC) 1.5 K/uL (0.7-4.9); Lymphocytes % 14.8 % (15.3-44.8); MCV 82.7 fL (80-100); MPV 10.8 fL (7.6-11.3); Platelets 73 thou/uL (152-406); RBC Red Blood Cell Count 5.92 M/uL (4.33-5.43)
--- NOTE | 2023-02-24 18:52 | RAD REPORT ---
EXAM DESCRIPTION: RAD - Chest Single View - 02/24/2023 6:44 pm CLINICAL HISTORY: near syncope COMPARISON: Chest Pa And Lat (2 Views) dated 10/12/2016 FINDINGS: Lines: None. Lungs: No evidence of edema or pneumonia. Pleural: No significant pleural effusions or pneumothorax. Cardiac: The heart size is within normal limits. Mediastinum: Within normal limits. Bones: No acute fractures. Other: None IMPRESSION: No acute cardiopulmonary disease.
[2023-02-24 18:57] LABS: Albumin 3.8 g/dL (3.4-5.0); Bilirubin Direct 0.2 mg/dL (0-0.2); Bilirubin Indirect, Calculated 0.3 mg/dL (0.2-0.8); Bilirubin Total 0.5 mg/dL (0.2-1.0); Potassium 3.2 mEq/L (3.5-5.1); Protein, Total 7.2 g/dL (6.4-8.2); Troponin High Sensitivity 27.3 pg/mL (<58.9)
[2023-02-24 19:11] LABS: Blood Morphology Comment NOT SEEN (NOT SEEN); Platelet Estimate DECR; White Blood Cell Scan OK (OK)
--- NOTE | 2023-02-24 19:54 | RAD REPORT ---
EXAM DESCRIPTION: CT - Head Brain Wo Cont - 02/24/2023 7:30 pm CLINICAL HISTORY: DIZZINESS COMPARISON: Head angio dated 02/24/2023 TECHNIQUE: All CT scans are performed using dose optimization technique as appropriate and may inclu de automated exposure control or mA/KV adjustment according to patient size. FINDINGS: No intracranial hemorrhage, hydrocephalus or extra-axial fluid collection.No areas of brai n edema or evidence of midline shift. The paranasal sinuses and mastoids are clear. The calvarium is intact. IMPRESSION: No acute intracranial abnormality.
--- NOTE | 2023-02-24 19:56 | RAD REPORT ---
EXAM DESCRIPTION: CT - Head angio - 02/24/2023 7:31 pm CLINICAL HISTORY: DIZZINESS COMPARISON: No comparisons TECHNIQUE: CT angiography of the head was performed with maximum intensity reformatted images. 3D ma ximum intensity pixel (MIP) reconstructions were created All CT scans are performed using dose optimization technique as appropriate and may include automated exposure control or mA/KV adjustment according to patient size. FINDINGS: Anterior circulation: No aneurysm or large vessel occlusion. No hemodynamically significant stenosis. No arteriovenous malf ormation identified. Posterior circulation: No aneurysm or large vessel occlusion. No hemodynamically significant stenosis. No arteriovenous malf ormation identified. IMPRESSION: No significant flow abnormality is detected.
--- NOTE | 2023-02-24 20:02 | RAD REPORT ---
EXAM DESCRIPTION: CT - Neck Angio - 02/24/2023 7:31 pm CLINICAL HISTORY: dizziness COMPARISON: No comparisons TECHNIQUE: CT angiography of the neck vessels was performed with maximum intensity reformatted image s. CAROTID STENOSIS REFERENCE USING NASCET CRITERIA: Mild - <50% stenosis. Moderate - 50-69% stenosis. Severe - 70-94% stenosis. Near occlusion - 95-99% stenosis. Occluded - 100% stenosis. All CT scans are performed using dose optimization technique as appropriate and may include automated exposure control or mA/KV adjustment according to patient size. FINDINGS: A left aortic arch is identified with 2 vessel configuration of the great vessels. No significant flow abnormality is seen of the common carotid bilaterally. Calcified plaque present at both carotid bifurcations. Both carotid bulbs have stenoses that are less than 50%. No significant stenosis is identified involving the cervical segments of both internal car otid arteries. Normal flow is seen within both vertebral arteries. IMPRESSION: No significant flow abnormality of the neck vessels is identified. Prominent calcified p laque at both proximal ICAs but no flow limiting (greater than 50%) stenoses.
[2023-02-24] MEDS ORDERED: ONDANSETRON 4 MG/2 ML VIAL ONE (20:21)
[2023-02-24] MEDS ORDERED: MECLIZINE HCL 12.5 MG TAB ONE (20:21)
[2023-02-24] MEDS ORDERED: NA CHLORIDE 0.9% 500 ML ONE (20:21)
--- NOTE | 2023-02-24 21:22 | ER ---
Nurse's Notes [facility] Name: Camilo Redd Age: 62 yrs Sex: Male : 1960 Arrival Date: 02/24/2023 Time: 17:31 Bed 16 Private MD: Diagnosis: Nausea;Dizziness and giddiness;Syncope Near;Weakness Presentation: 02/24 17:42 Chief complaint: Patient states: was mowing the grass, he got light headed, stomach got iw upset. Coronavirus screen: At this time, the client does not indicate any symptoms associated with coronavirus-19. Ebola Screen: Patient negative for fever greater than or equal to 101.5 degrees Fahrenheit, and additional compatible Ebola Virus Disease symptoms Patient denies exposure to infectious person. Patient denies travel to an Ebola-affected area in the 21 days before illness onset. No symptoms or risks identified at this time. Initial Sepsis Screen: Does the patient meet any 2 criteria? No. Patient's initial sepsis screen is negative. Does the patient have a suspected source of infection? No. Patient's initial sepsis screen is negative. Risk Assessment: Do you want to hurt yourself or someone else? Patient reports no desire to harm self or others. Onset of symptoms was February 24, 2023. 17:42 Method Of Arrival: Ambulatory iw 17:44 Acuity: CARLOS MANUEL 3 iw Historical: - Allergies: 17:46 No Known Allergies; iw - PMHx: 17:44 diabetes mellitus; iw - Immunization history:: Adult Immunizations. - Social history:: Smoking status: . Screenin:20 [facility] ED Fall Risk Assessment (Adult) History of falling in the last 3 months, km8 including since admission No falls in past 3 months (0 pts) Confusion or Disorientation No (0 pts) Intoxicated or Sedated No (0 pts) Impaired Gait Yes (1 pt) Mobility Assist Device Used Yes (1 pt) Altered Elimination No (0 pt) Score/Fall Risk Level 0 - 2 = Low Risk Oriented to surroundings, Maintained a safe environment, Educated pt \T\ family on fall prevention, incl call for assistance when getting out of bed, Assessed \T\ reinforced patient's understanding of fall precautions. Abuse screen: Denies threats or abuse. Denies injuries from another. Nutritional screening: No deficits noted. Tuberculosis screening: No symptoms or risk factors identified. Assessment: 20:20 General: Appears in no apparent distress. comfortable, Behavior is calm, cooperative, km8 appropriate for age. Pain: Denies pain. Neuro: Alvares Agitation-Sedation Scale (RASS): 0 - Alert and Calm Level of Consciousness is awake, alert, obeys commands, Oriented to person, place, time, situation, Reports dizziness. Cardiovascular: Denies chest pain, shortness of breath, Capillary refill < 3 seconds Patient's skin is warm and dry. Rhythm is sinus rhythm. Respiratory: No deficits noted. Airway is patent Respiratory effort is even, unlabored, Respiratory pattern is regular, symmetrical. GI: Abdomen is flat, non-distended, Reports nausea. : No deficits noted. No signs and/or symptoms were reported regarding the genitourinary system. EENT: No deficits noted. No signs and/or symptoms were reported regarding the EENT system. Derm: No signs and/or symptoms reported regarding the dermatologic system. Skin is intact, Skin is dry, Skin is normal, Skin temperature is warm. Musculoskeletal: No signs and/or symptoms reported regarding the musculoskeletal system. Range of motion: intact in all extremities. 21:15 Reassessment: Patient appears in no apparent distress at this time. No changes from km8 previously documented assessment. Patient and/or family updated on plan of care and expected duration. Pain level reassessed. Patient is alert, oriented x 3, equal unlabored respirations, skin warm/dry/pink. Vital Signs: 17:42 BP 160 / 85; Pulse 84; Resp 16; Temp 98.5; Pulse Ox 98% on R/A; iw 20:15 BP 157 / 77 Supine; Pulse 82; km8 20:18 BP 158 / 85 Sitting; Pulse 75; km8 20:22 BP 154 / 80 Standing; Pulse 81; Resp 16 S; Pulse Ox 96% on R/A; km8 21:00 BP 154 / 73; Pulse 77; Resp 16; Pulse Ox 98% on R/A; km8 [place] Coma Score: 20:20 Eye Response: spontaneous(4). Motor Response: obeys commands(6). Verbal Response: km8 oriented(5). Total: 15. ED Course: 17:32 Patient arrived in ED. rg4 17:40 Deion Guaman PA is PHCP. cp 17:40 Calvin Cuellar MD is Attending Physician. cp 17:44 Triage completed. iw 18:26 Basic Metabolic Panel Sent. em1 18:26 CBC with Diff Sent. em1 18:26 LFT's Sent. em1 18:26 Magnesium Sent. em1 18:27 PT-INR Sent. em1 18:27 Troponin HS Sent. em1 18:27 Initial lab(s) drawn, by me, sent to lab. Inserted saline lock: 22 gauge in right em1 forearm, using aseptic technique. Blood collected. 18:38 EKG done, by ED staff, reviewed by Deion LAWRENCE. em1 18:46 XRAY Chest (1 view) In Process Unspecified. EDMS 19:32 CT Head Brain wo Cont In Process Unspecified. EDMS 19:33 CT Head Angio In Process Unspecified. EDMS 19:33 CT Neck Angio In Process Unspecified. EDMS 20:03 Huyen Escobar, RN is Primary Nurse. km8 20:20 Patient maintains SpO2 saturation greater than 95% on room air. km8 20:20 Patient has correct armband on for positive identification. Bed in low position. Call km8 light in reach. Side rails up X 1. Client placed on continuous cardiac and pulse oximetry monitoring. NIBP monitoring applied. ekg monitor tech on. 20:22 Arm band placed on left wrist. km8 21:29 Provided Education on: d/c teaching. km8 21:30 No provider procedures requiring assistance completed. km8 21:36 IV discontinued, intact, bleeding controlled, No redness/swelling at site. Pressure km8 dressing applied. Administered Medications: 20:19 Drug: NS 0.9% IV 500 ml IV at bolus once Route: IV; Rate: bolus; Site: right km8 antecubital; 21:29 Follow up: Response: No adverse reaction; IV Status: Completed infusion; IV Intake: km8 500ml 20:19 Drug: Meclizine PO 25 mg PO once Route: PO; km8 20:41 Follow up: Response: No adverse reaction km8 20:19 Drug: Ondansetron IVP 4 mg IVP once; over 2 minutes Route: IVP; Site: right antecubital;km8 20:41 Follow up: Response: No adverse reaction km8 Medication: 21:29 VIS not applicable for this client. km8 Point of Care Testing: Blood Glucose: 17:46 Blood Glucose: 145 mg/dL; iw Ranges: Intake: 21:29 IV: 500ml; Total: 500ml. km8 Outcome: 21:21 Discharge ordered by . romain 21:37 Discharged to home ambulatory, km8 21:37 Condition: good 21:37 Discharge instructions given to patient, Instructed on discharge instructions, follow up and referral plans. medication usage, Demonstrated understanding of instructions, follow-up care, medications, Prescriptions given X 2, 21:37 Patient left the ED. km8 Signatures: Dispatcher [employer] Louise Ma, RN RN William Vaughn em1 Deion Guaman PA PA cp Garcia, Rubi rg4 Huyen Escobar RN RN km8
--- NOTE | 2023-02-24 21:22 | EDPHYS ---
Physician Documentation [facility] Name: Camilo Redd Age: 62 yrs Sex: Male : 1960 Arrival Date: 02/24/2023 Time: 17:31 Bed 16 Private MD: ED Physician Calvin Cuellar HPI: 02/24 18:00 This 62 yrs old Male presents to ER via Ambulatory with complaints of Dizziness, Nausea.cp 18:00 The patient presents with dizziness, generalized weakness, lightheadedness. Onset: The cp symptoms/episode began/occurred today. 18:00 Context: Patient is a 62-year-old male who presents to the emergency department with cp complaints of dizziness and nausea. Patient reports he was outside mowing the yard when he bent over and as he stood up he suddenly had an episode of dizziness, lightheadedness and he almost passed out. Patient denies any chest pain and/or abdominal pain presents to the emergency department with continued dizziness and nausea. 18:00 Associated signs and symptoms: Pertinent positives: general weakness, Pertinent cp negatives: abdominal pain, chest pain, diaphoresis, focal weakness, head injury. Patient's baseline: Neuro: alert and fully oriented, Motor: no deficits, Ambulation: walks without assistance, Speech: normal. Historical: - Allergies: 17:46 No Known Allergies; iw - PMHx: 17:44 diabetes mellitus; iw - Immunization history:: Adult Immunizations. - Social history:: Smoking status: . ROS: 18:05 Constitutional: Negative for body aches, chills, fever, poor PO intake, cp 18:05 Eyes: Negative for injury, pain, redness, and discharge, cp 18:05 ENT: Negative for drainage from ear(s), ear pain, sore throat, difficulty swallowing, difficulty handling secretions, 18:05 Neck: Negative for pain with movement, pain at rest, stiffness, 18:05 Cardiovascular: Negative for chest pain, edema, palpitations, 18:05 Respiratory: Negative for cough, shortness of breath, wheezing, 18:05 Abdomen/GI: Positive for nausea, Negative for abdominal pain, vomiting, diarrhea, constipation, black/tarry stool, rectal bleeding, 18:05 : Negative for urinary symptoms, 18:05 Neuro: Positive for dizziness, near syncope, weakness, Negative for headache, numbness, 18:05 All other systems are negative, Exam: 18:10 Constitutional: The patient appears in no acute distress, alert, awake, cp non-diaphoretic, non-toxic, well developed, well nourished, 18:10 Head/Face: Normocephalic, atraumatic. cp 18:10 Eyes: Periorbital structures: appear normal, Pupils: equal, round, and reactive to light and accomodation, Extraocular movements: intact throughout, Conjunctiva: normal, no exudate, no injection, Sclera: no appreciated abnormality, Lids and lashes: appear normal, bilaterally, 18:10 ENT: External ear(s): are unremarkable, Ear canal(s): are normal, clear, TM's: bulging, is not appreciated, bilaterally, dullness, bilaterally, erythema, is not appreciated, bilaterally, Nose: is normal, Mouth: Lips: moist, Oral mucosa: pink and intact, moist, Posterior pharynx: is normal, airway is patent, no erythema, no exudate, 18:10 Neck: ROM/movement: is normal, is supple, without pain, no range of motions limitations, 18:10 Chest/axilla: Inspection: normal, 18:10 Cardiovascular: Rate: normal, Rhythm: regular, Edema: is not appreciated, JVD: is not appreciated, 18:10 Respiratory: the patient does not display signs of respiratory distress, Respirations: normal, no use of accessory muscles, no retractions, labored breathing, is not present, Breath sounds: are clear throughout, no decreased breath sounds, no stridor, no wheezing, 18:10 Abdomen/GI: Inspection: abdomen appears normal, Palpation: abdomen is soft and non-tender, in all quadrants, 18:10 Back: pain, is absent, ROM is normal, 18:10 Neuro: Orientation: to person, place \T\ time. Mentation: is normal, Cerebellar function: Romberg testing is negative, Motor: moves all fours, strength is normal, Sensation: is normal, 18:40 ECG was reviewed by the Attending Physician. cp 20:45 ECG was reviewed by the Attending Physician. cp Vital Signs: 17:42 BP 160 / 85; Pulse 84; Resp 16; Temp 98.5; Pulse Ox 98% on R/A; iw 20:15 BP 157 / 77 Supine; Pulse 82; km8 20:18 BP 158 / 85 Sitting; Pulse 75; km8 20:22 BP 154 / 80 Standing; Pulse 81; Resp 16 S; Pulse Ox 96% on R/A; km8 21:00 BP 154 / 73; Pulse 77; Resp 16; Pulse Ox 98% on R/A; km8 [place] Coma Score: 20:20 Eye Response: spontaneous(4). Motor Response: obeys commands(6). Verbal Response: km8 oriented(5). Total: 15. MDM: 17:51 Patient medically screened. cp 21:20 Data reviewed: vital signs, nurses notes, lab test result(s), EKG, radiologic studies, cp CT scan, plain films. 21:20 Differential diagnosis: cardiac arrhythmia, CVA, idiopathic dizziness, TIA, vertigo. cp Consideration of Admission/Observation Escalation of care including admission/observation considered. I considered the following discharge prescriptions or medication management in the emergency department Medications were administered in the Emergency Department. See MAR. Independent interpretation of the following test(s) in the Emergency Department EKG: See my EKG interpretation above. Test considered but Not performed: MRI: brain. Care significantly affected by the following chronic conditions: Diabetes. Counseling: I had a detailed discussion with the patient and/or guardian regarding the historical points, exam findings, and any diagnostic results supporting the discharge/admit diagnosis, lab results, radiology results, the need for outpatient follow up, a family practitioner, to return to the emergency department if symptoms worsen or persist or if there are any questions or concerns that arise at home. Response to treatment: the patient's symptoms have markedly improved after treatment, and as a result, I will discharge patient. 02/24 17:48 Order name: Basic Metabolic Panel; Complete Time: 19:32 cp 02/24 19:32 Interpretation: Normal except: K 3.2; GLUC 152; BUN 32; CRE 1.43; GFR 55. cp 02/24 17:48 Order name: CBC with Diff; Complete Time: 19:32 cp 02/24 19:33 Interpretation: Normal except: RBC 5.92; PLT 73; JONN% 74.6; LYM% 14.8. cp 02/24 17:48 Order name: LFT's; Complete Time: 19:32 cp 02/24 17:48 Order name: Magnesium; Complete Time: 19:32 cp 02/24 17:48 Order name: PT-INR; Complete Time: 19:32 cp 02/24 17:48 Order name: Troponin HS; Complete Time: 19:32 cp 02/24 17:48 Order name: Urinalysis W/Microscopic; Complete Time: 19:32 cp 02/24 17:58 Order name: Glucose, Ancillary Testing; Complete Time: 19:32 EDWA 02/24 19:12 Order name: CBC Smear Scan; Complete Time: 19:32 EDMS 02/24 17:48 Order name: CT Head Brain wo Cont; Complete Time: 20:25 cp 02/24 20:25 Interpretation: Report reviewed. cp 02/24 17:48 Order name: CT Head Angio; Complete Time: 20:25 cp 02/24 20:26 Interpretation: Report reviewed. cp 02/24 17:48 Order name: CT Neck Angio; Complete Time: 20:25 cp 02/24 20:27 Interpretation: Report reviewed. 02/24 17:48 Order name: XRAY Chest (1 view); Complete Time: 19:32 02/24 17:48 Order name: EKG; Complete Time: 17:49 cp 02/24 17:48 Order name: Orthostatic Blood Pressure; Complete Time: 20:19 cp 02/24 17:48 Order name: Cardiac monitoring; Complete Time: 20:19 cp 02/24 17:48 Order name: EKG - Nurse/Tech; Complete Time: 18:38 cp 02/24 17:48 Order name: IV Saline Lock; Complete Time: 18:26 cp 02/24 17:48 Order name: Labs collected and sent; Complete Time: 18:26 cp 02/24 17:48 Order name: O2 Per Protocol; Complete Time: 20:19 cp 02/24 17:48 Order name: O2 Sat Monitoring; Complete Time: 20:19 cp 02/24 20:28 Order name: EKG - Nurse/Tech; Complete Time: 20:41 cp EC:40 Rate is 79 beats/min. Rhythm is regular. DE interval is normal. QRS interval is normal. cp QT interval is normal. Interpreted by me. Reviewed by me. 20:45 Rate is 75 beats/min. Rhythm is regular. DE interval is prolonged at 210 msec. QRS cp interval is normal. QT interval is normal. T waves are Inverted in leads III, aVR. Interpreted by me. Reviewed by me. Administered Medications: 20:19 Drug: NS 0.9% IV 500 ml IV at bolus once Route: IV; Rate: bolus; Site: right 8 antecubital; 21:29 Follow up: Response: No adverse reaction; IV Status: Completed infusion; IV Intake: km8 500ml 20:19 Drug: Meclizine PO 25 mg PO once Route: PO; km8 20:41 Follow up: Response: No adverse reaction [facility] 20:19 Drug: Ondansetron IVP 4 mg IVP once; over 2 minutes Route: IVP; Site: right antecubital;8 20:41 Follow up: Response: No adverse reaction [facility] Point of Care Testing: Blood Glucose: 17:46 Blood Glucose: 145 mg/dL; Ranges: Critical Glucose Levels:Adult <50 mg/dl or >400 mg/dl <40 mg/dl or >180 mg/dl Disposition: 02/25 08:09 Co-signature as Attending Physician, Calvin Cuellar MD I reviewed the patient's care rn provided by the Advanced Practice Provider and agree with the diagnosis and treatment plan. Disposition Summary: 02/24/23 21:21 Discharge Ordered Notes: Location: Home cp Problem: new cp Symptoms: have improved cp Condition: Stable cp Diagnosis - Nausea cp - Dizziness and giddiness cp - Syncope Near cp - Weakness cp Followup: cp - With: Private Physician - When: 1 - 2 days - Reason: Recheck today's complaints Discharge Instructions: - Discharge Summary Sheet cp - Dizziness cp - Nausea, Adult cp - Near-Syncope cp - Weakness cp Forms: - Medication Reconciliation Form cp - Thank You Letter cp - Antibiotic Education cp - Prescription Opioid Use cp - Patient Portal Instructions cp - Leadership Thank You Letter cp Prescriptions: - Meclizine 25 mg Oral Tablet - take 1 tablet ORAL route every 8 hours As needed; 30 tablet; Refills: 0, cp Product Selection Permitted - Zofran 4 mg Oral Tablet - take 1 tablet ORAL route every 12 hours As needed; 20 tablet; Refills: 0, cp Product Selection Permitted Signatures: Dispatcher [employer] Louise Ma RN RN iw Nieto, Roman, MD MD rn Page, Corey, PA PA cp Huyen Escobar RN RN km8 Corrections: (The following items were deleted from the chart) 20:05 20:00 . cp cp
[2023-02-24 22:07] VITALS: TEMP 98.5
[2023-02-24 22:20] VITALS: BP 154/73; O2SAT 98
--- NOTE | 2023-03-03 14:39 | EKG ---
Test Date: 2023-02-24 Test Time: 18:36:11 Animal Eviscerator: YADIRA MEASUREMENT RESULTS: Intervals: Rate: 79 [place]: 200 QRSD: 86 QT: 372 QTc: 426 [place]: P: 63 [place]: 200 QRS: 33 T: 34 INTERPRETIVE STATEMENTS: Normal sinus rhythm Normal ECG Compared to ECG 04/12/1996 18:11:00 No significant changes Electronically Signed On 03-03-23 14:19:33 SECONDARY SPECIAL EDUCATION TEACHER by Chriss Duggan
--- NOTE | 2023-03-03 14:39 | EKG ---
Test Date: 2023-02-24 Test Time: 20:38:18 Child Care Worker: JIMENA MEASUREMENT RESULTS: Intervals: Rate: 75 DC: 210 QRSD: 96 QT: 390 QTc: 435 [place]: P: 54 DC: 210 QRS: 8 T: 5 INTERPRETIVE STATEMENTS: Sinus rhythm with 1st degree AV block Possible Inferior infarct, age undetermined Possible Anterior infarct, age undetermined Abnormal ECG Compared to ECG 02/24/2023 18:36:11 First degree AV block now present Myocardial infarct finding now present Electronically Signed On 03-03-23 14:19:28 GREENSKEEPER HEAD by Chriss Duggan
== END 2023-02-24 21:37 | disposition home or self-care (01) ==
LOC: ER 17:31
DX: R11.0 Nausea (principal); R42 Dizziness and giddiness; R55 Syncope and collapse; R53.1 Weakness; E11.9 Type 2 diabetes mellitus without complications
CPT/HCPCS: 96361; 93005 ×2; 85025; 81001; 80048; 36415; 83735; 85610; 82947; 80076; 84484; 70450; 70496; 70498; 71045; 96374; 99285; Q9967; J8597; J2405; J7040